=== PATIENT | female | born 1975 | race Caucasian/White ===

== ENCOUNTER → 2021-07-20 | Outpatient (CLI) | payer OTHER ==
[2021-07-20 12:43] LABS: ALBUMIN 4.2 g/dL (3.5-5.0); POTASSIUM 3.8 mmol/L (3.5-5.1)
[2021-07-20 12:44] LABS: CALCIUM 9.5 mg/dL (8.3-10.5)
[2021-07-20 12:45] LABS: TOTAL PROTEIN 7.7 g/dL (6.4-8.3)
[2021-07-20 12:47] LABS: TOTAL BILIRUBIN 1.2 mg/dL (0.2-1.2)
[2021-07-20 12:51] LABS: BASO # 0.05 K/mm3 (0.02-0.10); HEMATOCRIT 42.8 % (37.0-47.0); HEMOGLOBIN 14.7 g/dL (12.5-16.0); LYMPH# 2.73 K/mm3 (1.50-4.00); MEAN CELL VOLUME 87 fl (78-100); MEAN CORPUSCULAR HEMOGLOBIN 30 pg (27-31); MEAN CORPUSCULAR HGB CONC 34 g/dL (33-37); MONO # 0.65 K/mm3 (0.20-0.80); NEU # 4.16 K/mm3 (1.40-6.50); PLATELET COUNT 305 K/mm3 (130-400); RED BLOOD COUNT 4.93 M/mm3 (4.10-5.30); RED CELL DISTRIBUTION WIDTH 13.1 % (11.5-14.5); WHITE BLOOD COUNT 7.6 K/mm3 (4.8-10.8)
[2021-07-20 13:25] LABS: D-DIMER 0.39 mg/L FEU (0.15-0.50)
== END ==
LOC: LAB 11:07
PROVIDERS: Physician Assistant
DX: J18.9 Pneumonia, unspecified organism (principal)

== ENCOUNTER → 2021-09-28 | Outpatient (CLI) | payer OTHER | LOC: RAD 15:48 | DX: M18.12 Unilateral primary osteoarthritis of first carpometacarpal joint, left hand (principal) ==

== ENCOUNTER → 2023-07-14 | Outpatient (CLI) | payer OTHER ==
[2023-07-14 23:14] LABS: T3 TOTAL 108 ng/dL (35-193)
== END ==
LOC: LAB 10:26
PROVIDERS: Physician Assistant
DX: E03.9 Hypothyroidism, unspecified (principal); E11.9 Type 2 diabetes mellitus without complications; R74.01 Elevation of levels of liver transaminase levels; L28.2 Other prurigo; L20.9 Atopic dermatitis, unspecified; Z85.850 Personal history of malignant neoplasm of thyroid

== ENCOUNTER → 2023-12-15 | Outpatient (CLI) | payer OTHER | LOC: RAD 14:52 | DX: M25.551 Pain in right hip (principal); M25.552 Pain in left hip; M54.50 Low back pain, unspecified ==

== ENCOUNTER → 2024-01-16 | Outpatient (CLI) | payer OTHER | LOC: RAD 11:03 | DX: M51.37 Other intervertebral disc degeneration, lumbosacral region (principal); M51.36 Other intervertebral disc degeneration, lumbar region ==

== ENCOUNTER → 2024-04-12 | Outpatient (CLI) | payer OTHER ==
[2024-04-12 09:20] LABS: URINE WBC 0 /hpf (0-3)
[2024-04-12 09:35] LABS: BASO # 0.05 K/mm3 (0.02-0.10); HEMOGLOBIN 15.8 g/dL (12.5-16.0); LYMPH# 2.79 K/mm3 (1.50-4.00); MEAN CELL VOLUME 87 fl (78-100); MEAN CORPUSCULAR HEMOGLOBIN 29 pg (27-31); MEAN CORPUSCULAR HGB CONC 34 g/dL (33-37); MEAN PLATELET VOLUME 9.5 fl (7.4-10.4); MONO # 0.64 K/mm3 (0.20-0.80); NEU # 3.89 K/mm3 (1.40-6.50); PLATELET COUNT 343 K/mm3 (130-400); RED BLOOD COUNT 5.38 M/mm3 (4.10-5.30); RED CELL DISTRIBUTION WIDTH 12.5 % (11.5-14.5); WHITE BLOOD COUNT 7.4 K/mm3 (4.8-10.8)
[2024-04-12 09:43] LABS: ALBUMIN 4.8 g/dL (3.5-5.0)
[2024-04-12 09:44] LABS: CALCIUM 10.4 mg/dL (8.3-10.5)
[2024-04-12 09:47] LABS: TOTAL BILIRUBIN 1.2 mg/dL (0.2-1.2)
[2024-04-12 09:52] LABS: MAGNESIUM 2.12 mg/dL (1.60-2.60)
[2024-04-12 10:13] LABS: URINE APPEARANCE CLEAR (CLEAR); URINE BILIRUBIN NEGATIVE (NEGATIVE); URINE BLOOD NEGATIVE (NEGATIVE); URINE COLOR YELLOW (YELLOW); URINE GLUCOSE NEGATIVE (NEGATIVE); URINE KETONE NEGATIVE (NEGATIVE); URINE LEUKOCYTE ESTERASE NEGATIVE (NEGATIVE); URINE NITRATE NEGATIVE (NEGATIVE); URINE PROTEIN(semi-quant) NEGATIVE (NEGATIVE)
== END ==
LOC: LAB 09:13
PROVIDERS: Physician Assistant
DX: Z01.818 Encounter for other preprocedural examination (principal); E83.42 Hypomagnesemia; E11.9 Type 2 diabetes mellitus without complications; R31.9 Hematuria, unspecified